=== PATIENT | male | born 1960 | race Two or more races ===

== ENCOUNTER → 2024-04-24 | Outpatient (CLI) | payer OTHER ==
--- NOTE | 2024-04-24 09:39 | DVH ---
CT ABDOMEN AND PELVIS WITHOUT CONTRAST CLINICAL HISTORY: ELEVATED SERUM PSA LEVEL TECHNIQUE: Multiple contiguous axial images of the abdomen and pelvis without intravenous contrast. The images were reformatted degenerate coronal and sagittal reconstructions. All CT scans at this medical facility are performed using dose modulation techniques as appropriate t o a performed exam including the following:Automated exposure control was utilized; adjustment of the MA and/or KV according to patient size; and use of iterative reconstruction technique. Radiation Dose Information: CT Dose: CTDI volume is 17.06 mGy. Dose-length product is 1081.4 mGy*cm Comparison: None FINDINGS: Evaluation of the abdomen and pelvis is limited without intravenous contrast. There are small bilateral renal cysts. There is no evidence of nephrolithiasis or hydronephrosis. Th e liver, gallbladder, pancreas, adrenal glands, and spleen appear within normal limits. There is no gross evidence of abdominal lymphadenopathy. There is no free fluid or free air. The stomach grossly appears unremarkable. The small and large bowel loops demonstrate normal caliber . There are scattered diverticula in the colon without evidence of acute diverticulitis. The abdominal aorta and IVC appear within normal limits. The bladder appears unremarkable for the degree of distention. Pelvic organ appears within normal ferreira its. There is no gross evidence of a pelvic mass. There is no free fluid collection. There is parenchymal scarring with bronchiectasis in the right middle lobe. There is no acute osseous abnormality. IMPRESSION: 1. There is no acute process in the abdomen and pelvis. HS:Y
== END | disposition home or self-care (01) ==
LOC: XYW 09:00 → EEVIPCON 09:00
DX: N28.1 Cyst of kidney, acquired (principal); K57.30 Diverticulosis of large intestine without perforation or abscess without bleeding
CPT/HCPCS: 74176

== ENCOUNTER 2024-05-05 06:08 | Day surgery (SDC) | payer OTHER ==
[~2024-05-05] VITALS: Ht 188 cm; Wt 81.6 kg
[2024-05-05] MEDS ORDERED: CIPROFLOXACIN 400MG/200ML 200 ML IV ONE (06:47)
[2024-05-05] MEDS ORDERED: fentaNYL CITRATE 100 MCG/2 ML VL ONE (08:32)
[2024-05-05] MEDS ORDERED: PROPOFOL 10 MG/ML 20 ML IV ONE (08:33)
[2024-05-05] MEDS ORDERED: DexAMETHasone SOD PHOS 10MG/1ML VIAL INJ ONE (08:46)
[2024-05-05] MEDS ORDERED: ONDANSETRON HCL 4 MG/2 ML VIAL ONE (08:46)
[2024-05-05] MEDS ORDERED: ePHEDrine SULFATE 50 MG/ML AMP ONE (08:48)
[2024-05-05 09:14] VITALS: PULSE 74; RESP 20; TEMP 97.7; O2SAT 100
--- NOTE | 2024-05-05 09:19 | DVHDS2 ---
New Physician D'charge PN Admitting Diagnosis Admitting Diagnosis Elevated PSA Straining to void Discharge Diagnosis Urethral stricture disease BPH Operations or Procedures Cystoscopy Transrectal ultrasound-guided prostate biopsy Reason(s) For Hospitalization Surgery Treatment Plan Discharge Condition of Discharge Fair Disposition [facility] Discharge Instructions Diet: Regular Activity: Light activity Activity comment: As tolerated Medications: Given Follow Up Care Follow Up/Referral: Two weeks for pathology results Discharge Statement: "Patient was advised to return to the ER or call 911 if any headaches, dizziness, shortness of breath, chest pain, abdominal pain, bleeding, fevers, or worsening of medical condition. Patient was counseled about treatment plan, medications, possible side effects, patientverbalized understanding. All questions were answered to the best of my ability. This discharge took greater then 30 minutes in planning, reviewing documentation, counseling the patient, and discussing with other team members." LUKAS BRUSH MD May 05, 2024 09:19
[2024-05-05] MEDS ORDERED: ONDANSETRON HCL 4 MG/2 ML VIAL IV ONE (09:30)
[2024-05-05] MEDS ORDERED: HYDROmorphone HCL 2 MG/ML VL/or syr IV PRN (09:30)
[2024-05-05] MEDS ORDERED: MEPERIDINE HCL (25 MG/ML) 1ML VIAL IV PRN (09:30)
[2024-05-05] MEDS ORDERED: ACETAMINOPHEN IV 1000 MG/100ML (10MG/ML) IV PRN (09:30)
[2024-05-05 09:44] VITALS: BP 143/83; PULSE 68; RESP 12; O2SAT 98
== END 2024-05-05 10:19 ==
LOC: EEVIPCON → SUR 06:08
PROVIDERS: ATTEND Urology
DX: C61 Malignant neoplasm of prostate (principal); N40.1 Benign prostatic hyperplasia with lower urinary tract symptoms; N35.919 Unspecified urethral stricture, male, unspecified site; R39.16 Straining to void
CPT/HCPCS: 55700; 76872; 88305; 88342; C1769; J0744; J1100; J2405; J2704; J3010; J7030; 43239